=== PATIENT | female | born 1950 | race Caucasian/White ===

== ENCOUNTER 2016-12-18 16:00 | Emergency (ER) | payer SELFPAY ==
[~2016-12-18] VITALS: Ht 160 cm; Wt 75.3 kg
[2016-12-18 17:09] VITALS: BP 125/93
--- NOTE | 2016-12-18 19:21 | NUR ---
TO ER BED 8
[2016-12-18] MEDS ORDERED: KETOROLAC 60 MG/2 ML VIAL IM ONE (19:55)
--- NOTE | 2016-12-18 20:10 | NUR ---
PATIENT PRESENTS TO ED WITH LOWER ABD PAIN SINCE YESTERDAY . PT STATES SHE HAS A HX OF HTN, ARTHRITIS AND HYPOTHYROIDISM AND DENIES N/V/D AT THIS TIME . DENIES N/V/D; SKIN IS PINK/WARM/DRY; AAOX4 WITH EVEN AND STEADY GAIT; LUNGS CLEAR BL; HR EVEN AND REGULAR; PT DENIES ANY FEVER, CP, SOB, OR COUGH AT THIS TIME; PATIENT STATES PAIN OF 8/10 AT THIS TIME; VSS; PATIENT POSITIONED FOR COMFORT; HOB ELEVATED; BEDRAILS UP X2; BED DOWN. ER MD MADE AWARE OF PT STATUS.
--- NOTE | 2016-12-18 21:55 | NUR ---
ULTRASOUND AT BEDSIDE
--- NOTE | 2016-12-18 21:58 | NUR ---
Patient appears to be resting comfortably in bed. Vital Signs within normal limits. Respirations even and unlabored.
[2016-12-18 22:21] VITALS: BP 135/80
--- NOTE | 2016-12-18 22:26 | NUR ---
Patient discharged with v/s stable. Written and verbal after care instructions given and explained. Patient alert, oriented and verbalized understanding of instructions. Ambulatory with steady gait. All questions addressed prior to discharge. ID band removed. Patient advised to follow up with PMD. Rx of CIPRO 500MG PO BID AND TRAMADOL HYDROCHLORIDE given. Patient educated on indication of medication including possible reaction and side effects. Opportunity to ask questions provided and answered.
== END 2016-12-18 22:21 | disposition home or self-care (01) ==
LOC: MED 16:00
DX: N39.0 Urinary tract infection, site not specified (principal); I10 Essential (primary) hypertension; Z88.5 Allergy status to narcotic agent
CPT/HCPCS: 74176; 76856; 81002; 96372; 99285; J1885; Q0092

== ENCOUNTER 2023-02-01 00:10 | Emergency (ER) | payer OTHER ==
[~2023-02-01] VITALS: Ht 157.5 cm; Wt 77.1 kg
--- NOTE | 2023-02-01 00:15 | NUR ---
TO BED AMBULATORY
[2023-02-01] MEDS ORDERED: LISI5TAB18 PO (00:31)
[2023-02-01] MEDS ORDERED: METO25TE2 PO (00:31)
--- NOTE | 2023-02-01 00:35 | NUR ---
Dr. Cervantes examining patient.
--- NOTE | 2023-02-01 00:38 | NUR ---
X-Ray at bedside.
--- NOTE | 2023-02-01 00:45 | NUR ---
Blood for labwork drawn by sofa back upholsterer. Patient tolerated well.
--- NOTE | 2023-02-01 00:45 | NUR ---
Medical Records Library Professor #[id number] - Patient BIB by her family from home. C/O chest pain x 1 day. Patient reported, had mid chest pain, pressure, 3/10, no radiating , felt anxious after chest pain, Hx Sciatica, HTN and Arthritis.
[2023-02-01] MEDS ORDERED: ALPRAZolam 0.5 MG TAB PO STA (00:46)
[2023-02-01 01:20] LABS: ANION GAP 12.5 (8-16); ASPARTATE AMINOTRANSFERASE 27 U/L (15-37); BASOPHILS % (AUTO) 0.6 % (0.0-2.0); CARBON DIOXIDE 27.2 mmol/L (21-32); CHLORIDE 103 mmol/L (98-107); CREATININE 0.9 mg/dL (0.6-1.3); EOSINOPHILS # (AUTO) 0.1 K/uL (0-0.4); GLUCOSE 158 mg/dL (74-106); HEMATOCRIT 43.6 % (36-48); HEMOGLOBIN 14.7 g/dL (12.0-16.0); LYMPHOCYTES # (AUTO) 2.5 K/uL (2.5-16.5); LYMPHOCYTES % (AUTO) 31.4 % (20.5-51.1); MEAN CORPUSCULAR HEMOGLOBIN 31 pg (27-31); MEAN CORPUSCULAR HGB CONC 34 g/dL (33-37); MEAN CORPUSCULAR VOLUME 90.6 fL (80-94); MONOCYTES # (AUTO) 1.1 K/uL (0.8-1.0); MONOCYTES % (AUTO) 13.4 % (1.7-9.3); NEUTROPHILS # (AUTO) 4.2 K/uL (1.8-7.7); NEUTROPHILS % (AUTO) 53.6 % (42.2-75.2); PLATELET COUNT (AUTO) 288 K/uL (140-450); POTASSIUM 3.7 mmol/L (3.5-5.1); RED BLOOD CELL COUNT(AUTO) 4.81 MIL/uL (4.20-5.40); RED CELL DISTRIBUTION WIDTH 13.7 % (11.6-13.7); SODIUM SERUM 139 mmol/L (136-145); TOTAL BILIRUBIN 0.6 mg/dL (0.0-1.0); UREA NITROGEN, BLOOD 14 mg/dL (7-18); WHITE BLOOD COUNT (AUTO) 7.9 K/uL (4.8-10.8)
[2023-02-01 01:30] LABS: LIPASE 134 U/L (73-393)
[2023-02-01 02:17] VITALS: BP 114/61
--- NOTE | 2023-02-01 02:17 | NUR ---
Ventilator Specialist # [id number]- Patient discharged with v/s stable. Written and verbal after care instructions given and explained. Patient verbalized understanding. Ambulatory with steady gait. All questions addressed prior to discharge. Advised to follow up with PMD.
== END 2023-02-01 00:15 | disposition home or self-care (01) ==
LOC: MED 00:10
DX: R07.89 Other chest pain (principal); I10 Essential (primary) hypertension; E03.9 Hypothyroidism, unspecified; Z79.899 Other long term (current) drug therapy; Z88.5 Allergy status to narcotic agent
CPT/HCPCS: 36415; 71045; 80053; 83690; 83880; 84484; 85025; 99284; Q0092

== ENCOUNTER 2023-03-08 16:31 | Emergency (ER) | payer OTHER ==
[~2023-03-08] VITALS: Ht 162.6 cm; Wt 104.3 kg
[~2023-03-08 16:31] MED LIST: LISI5TAB18 PO; METO25TE2 PO
[2023-03-08 16:39] VITALS: BP_SYST 148; BP_SYST 156; BP_DIAS 83; BP_DIAS 91
--- NOTE | 2023-03-08 16:45 | NUR ---
TO ER BED 7
[2023-03-08] MEDS ORDERED: NACL 0.9% 1,000 ML IV SCH (16:55)
[2023-03-08] MEDS ORDERED: KETOROLAC 30 MG/ML VIAL IVP ONE (16:55)
[2023-03-08 17:10] LABS: BASOPHILS % (AUTO) 0.4 % (0.0-2.0); EOSINOPHILS % (AUTO) 0.6 % (0.0-4.0); HEMATOCRIT 44.2 % (36-48); LYMPHOCYTES # (AUTO) 2.3 K/uL (2.5-16.5); LYMPHOCYTES % (AUTO) 31.5 % (20.5-51.1); MEAN CORPUSCULAR HEMOGLOBIN 31 pg (27-31); MEAN CORPUSCULAR HGB CONC 34 g/dL (33-37); MEAN CORPUSCULAR VOLUME 89.8 fL (80-94); NEUTROPHILS # (AUTO) 3.8 K/uL (1.8-7.7); NEUTROPHILS % (AUTO) 53.5 % (42.2-75.2); PLATELET COUNT (AUTO) 270 K/uL (140-450); RED BLOOD CELL COUNT(AUTO) 4.92 MIL/uL (4.20-5.40); RED CELL DISTRIBUTION WIDTH 13.6 % (11.6-13.7); WHITE BLOOD COUNT (AUTO) 7.2 K/uL (4.8-10.8)
--- NOTE | 2023-03-08 17:16 | NUR ---
Patient taken to CT via wheelchair.
[2023-03-08 17:30] LABS: ALBUMIN 4.1 g/dL (3.4-5.0); ANION GAP 8.1 (8-16); ASPARTATE AMINOTRANSFERASE 34 U/L (15-37); CARBON DIOXIDE 32.1 mmol/L (21-32); CHLORIDE 100 mmol/L (98-107); GLUCOSE 106 mg/dL (74-106); LIPASE 155 U/L (73-393); POTASSIUM 3.2 mmol/L (3.5-5.1); SODIUM SERUM 137 mmol/L (136-145); TOTAL BILIRUBIN 0.6 mg/dL (0.0-1.0); UREA NITROGEN, BLOOD 15 mg/dL (7-18)
--- NOTE | 2023-03-08 17:45 | NUR ---
PT C/O ABD PAIN RADIATING TO LT LEG X 1 DAY. PT DENIES FEVER, NVD. SAFETY MAINTAINED. HX:SCIATICA, HTN, DM, HYPOTHYROIDISM
[2023-03-08 17:47] LABS: APPEARANCE,URINE CLEAR (CLEAR); BILIRUBIN,URINE NEGATIVE (NEGATIVE); BLOOD, URINE NEGATIVE (NEGATIVE); COLOR,URINE YELLOW (YELLOW); LEUKOCYTE ESTERASE ,URINE 1+ (NEGATIVE); NITRITE, URINE NEGATIVE (NEGATIVE); UGLUCOSE NEGATIVE (NEGATIVE)
[2023-03-08 18:00] LABS: RBC,URINE 0-5 /HPF (0-5); YEAST,URINE Few /HPF (None Seen)
[2023-03-08] MEDS ORDERED: CIPR500T4 PO ×2 (18:30→18:44)
[2023-03-08] MEDS ORDERED: TRAM50TA3 PO ×2 (18:30→18:44)
--- NOTE | 2023-03-08 18:48 | NUR ---
Patient discharged with v/s stable. Written and verbal after care instructions given. Patient alert, oriented and verbalized understanding of instructions. Ambulatory with steady gait. All questions addressed prior to discharge. ID band removed. Patient advised to follow up with PMD. Rx of Tramadol and Cipro given. Opportunity to ask questions provided and answered.
--- NOTE | 2023-03-08 18:51 | NUR ---
The patient's care was reviewed and supervised by [facility], RN.
--- NOTE | 2023-03-10 16:38 | NUR ---
CULTURE REPORT RECEIVED. RESULTS REVIED BY DR. AKHTAR. NO CHANGES RECEIVED. PT. NOT CONTACTED, PT. CAN CONTINUE WITH RX AND TREATMENT AT D/C, PER .
== END 2023-03-08 18:48 | disposition home or self-care (01) ==
LOC: MED 16:31
DX: N39.0 Urinary tract infection, site not specified (principal); E11.9 Type 2 diabetes mellitus without complications; I10 Essential (primary) hypertension; Z79.899 Other long term (current) drug therapy; Z88.5 Allergy status to narcotic agent
CPT/HCPCS: 36415; 74176; 80053; 81001; 83690; 85025; 87086; 96361; 96374; 99285; J1885; J7030

== ENCOUNTER 2023-04-07 19:53 | Emergency (ER) | payer OTHER ==
[~2023-04-07] VITALS: Ht 162.6 cm; Wt 83.9 kg
[~2023-04-07 19:53] MED LIST changes: +CIPR500T4 PO; +TRAM50TA3 PO
[2023-04-07 19:57] VITALS: BP 185/90
--- NOTE | 2023-04-07 19:57 | NUR ---
PT BIBA WITH C/O DIZZINESS. PT STATES SHE FEELS LIKE SHE IS GOING TO "PASS OUT" WHEN STANDING UP. PT DENIES ANY V/D, C/O NAUSEA. DENIES ANY RECENT ILLNESS. GLUCOSE IN FIELD 215. PT ALSO STATES SHE HAD AN EDIBLE APPROX 3 HOURS AGO. PMHX: HTN, DM ALLERGIES: CODEINE
--- NOTE | 2023-04-07 19:57 | NUR ---
[facility] ALS TO BED #4
[2023-04-07] MEDS ORDERED: NACL 0.9% 1,000 ML IV ONE (20:10)
--- NOTE | 2023-04-07 20:10 | NUR ---
Daughter at he bedside
[2023-04-07 20:19] LABS: BASOPHILS % (AUTO) 0.5 % (0.0-2.0); EOSINOPHILS # (AUTO) 0.1 K/uL (0-0.4); EOSINOPHILS % (AUTO) 0.9 % (0.0-4.0); HEMATOCRIT 40.1 % (36-48); HEMOGLOBIN 13.2 g/dL (12.0-16.0); LYMPHOCYTES # (AUTO) 2.3 K/uL (2.5-16.5); LYMPHOCYTES % (AUTO) 28.4 % (20.5-51.1); MEAN CORPUSCULAR HEMOGLOBIN 30 pg (27-31); MEAN CORPUSCULAR HGB CONC 33 g/dL (33-37); MEAN CORPUSCULAR VOLUME 91.3 fL (80-94); MONOCYTES # (AUTO) 0.9 K/uL (0.8-1.0); MONOCYTES % (AUTO) 11.6 % (1.7-9.3); NEUTROPHILS # (AUTO) 4.8 K/uL (1.8-7.7); NEUTROPHILS % (AUTO) 58.6 % (42.2-75.2); PLATELET COUNT (AUTO) 263 K/uL (140-450); RED CELL DISTRIBUTION WIDTH 14.6 % (11.6-13.7); WHITE BLOOD COUNT (AUTO) 8.1 K/uL (4.8-10.8)
[2023-04-07 20:45] LABS: ANION GAP 12.2 (8-16); CARBON DIOXIDE 24.8 mmol/L (21-32); CHLORIDE 102 mmol/L (98-107); CREATININE 0.9 mg/dL (0.6-1.3); GLUCOSE 256 mg/dL (74-106); SODIUM SERUM 135 mmol/L (136-145); UREA NITROGEN, BLOOD 13 mg/dL (7-18)
[2023-04-07 21:47] VITALS: BP 127/60
--- NOTE | 2023-04-07 21:48 | NUR ---
Patient discharged with v/s stable. Written and verbal after care instructions given and explained. Patient verbalized understanding. Ambulatory with steady gait. All questions addressed prior to discharge. Advised to follow up with PMD. pt left with her belongings and accompany with the daughter.
== END 2023-04-07 21:48 | disposition home or self-care (01) ==
LOC: MED 19:53
DX: R55 Syncope and collapse (principal); R42 Dizziness and giddiness; R11.0 Nausea; E11.9 Type 2 diabetes mellitus without complications; I10 Essential (primary) hypertension; Z79.899 Other long term (current) drug therapy; Z88.5 Allergy status to narcotic agent
CPT/HCPCS: 36415; 80048; 84484; 85025; 93005; 96360; 99284; J7030